=== PATIENT | female | born 1980 | race Caucasian/White ===

== ENCOUNTER 2020-10-12 04:29 | Emergency (ER) | payer OTHER ==
[~2020-10-12 04:29] MED LIST: NORCO 5-325 TA1 EACH PO; ZESTRIL2.5 MG PO
[2020-10-12] MEDS ORDERED: ACULAR5 M1 OS (05:13)
[2020-10-12] MEDS ORDERED: ILOTYCIN1 GM OS (05:13)
== END 2020-10-12 05:21 | disposition home or self-care (01) ==
LOC: FER 04:29
DX: S01.112A Laceration without foreign body of left eyelid and periocular area, initial encounter (principal); S05.02XA Injury of conjunctiva and corneal abrasion without foreign body, left eye, initial encounter; I10 Essential (primary) hypertension; W20.8XXA Other cause of strike by thrown, projected or falling object, initial encounter; Y92.009 Unspecified place in unspecified non-institutional (private) residence as the place of occurrence of the external cause
CPT/HCPCS: 99283